=== PATIENT | male | born 1970 | race Hispanic/Latino ===

== ENCOUNTER 2017-07-03 20:26 | Emergency (ER) | payer BC, OTHER ==
[2017-07-03 21:02] LABS: BASOPHILS % (AUTO) 0.4 % (0.0-5.0); EOSINOPHILS % (AUTO) 1.4 % (0.0-8.0); HEMATOCRIT 43.1 % (42-54); LYMPHOCYTES % (AUTO) 18.3 % (21.0-51.0); MEAN CORPUSCULAR HEMOGLOBIN 32.9 pg (27.0-33.0); MEAN CORPUSCULAR HGB CONC 34.2 g/dL (32.0-36.0); MEAN CORPUSCULAR VOLUME 96.3 fL (79-99); MONOCYTES % (AUTO) 7.4 % (3.0-13.0); NEUTROPHILS % (AUTO) 72.5 % (40.0-77.0); PLATELET COUNT (AUTO) 193 K/uL (130-400); RED BLOOD CELL COUNT(AUTO) 4.48 MIL/uL (4.50-6.20); WHITE BLOOD COUNT (AUTO) 13.1 K/uL (4.8-10.8)
[2017-07-03] MEDS ORDERED: ONDANSETRON HCL 4 MG/2 ML VIAL ONE (21:03)
[2017-07-03] MEDS ORDERED: FAMOTIDINE/PF 20 MG/2 ML VIAL IV ONE (21:04)
[2017-07-03] MEDS ORDERED: MORPHINE SULFATE 4 MG/1ML SYG ONE (21:04)
[2017-07-03 21:13] LABS: CREATININE 0.8 mg/dL (0.5-1.5); POTASSIUM 3.4 mmol/L (3.5-5.1)
[2017-07-03 21:14] LABS: INR 1.05 (0.85-1.15); PARTIAL THROMBOPLASTIN TIME 29.8 SEC (26.3-35.5)
[2017-07-03 21:18] LABS: ALBUMIN 3.2 g/dL (3.5-5.0); BILIRUBIN,TOTAL 0.6 mg/dL (0.2-1.0); TOTAL PROTEIN, SERUM 7.6 g/dL (6.0-8.3)
[2017-07-03] MEDS ORDERED: LIDOCAINE HCL 2% VISCOUS 15 ML UDCUP ONE (21:42)
[2017-07-03] MEDS ORDERED: MAG HYDROX/AL HYDROX/SIMETH ES 30 ML SUSP UDCUP ONE (21:42)
[2017-07-03 22:01] LABS: APPEARANCE,URINE Clear (CLEAR); BILIRUBIN,URINE Small (NEGATIVE); COLOR,URINE Dark Yellow (YELLOW); GLUCOSE, URINE (UA) Negative (NEGATIVE); KETONES,URINE Trace mg/dL (NEGATIVE); LEUKOCYTE ESTERASE ,URINE Negative (NEGATIVE); NITRATE,URINE Negative (NEGATIVE); OCCULT BLOOD,URINE Negative (NEGATIVE); PROTEIN,URINE Negative (NEGATIVE)
[2017-07-03 22:13] LABS: BACTERIA,URINE None Seen /HPF (None Seen); MUCUS,URINE Many LPF (None Seen); RBC,URINE None Seen /HPF (0-1); SQUAMOUS EPITHELIAL CELL,UR None Seen /LPF (0-2); WBC,URINE None Seen /HPF (0-1)
== END 2017-07-03 22:26 | disposition home or self-care (01) ==
LOC: EDH 20:26
DX: K80.20 Calculus of gallbladder without cholecystitis without obstruction (principal); I10 Essential (primary) hypertension; L40.9 Psoriasis, unspecified
CPT/HCPCS: 36415; 76705; 80053; 81001; 83690; 84484; 85025; 85610; 85730; 93005; 96361; 96374; 96375; 99285; J2270; J2405; J3490

== ENCOUNTER 2018-06-01 12:50 | Day surgery (SDC) | payer BC ==
[~2018-06-01] VITALS: Ht 175.3 cm; Wt 101.3 kg
[2018-06-01] VITALS (8 sets, daily range): BP systolic 109–132; BP diastolic 72–89
[~2018-06-01 12:50] MED LIST: ADAL40KI SQ; BUSP10TA3 PO; METO-408 PO; MILK1CAP3 PO; RIFA550T PO
[2018-06-01] MEDS ORDERED: SODIUM CHLORIDE 0.9% 1000ML 1,000 ML IV ONE (13:33)
[2018-06-01 13:48] LABS: BASOPHILS % (AUTO) 0.5 % (0.0-5.0); EOSINOPHILS % (AUTO) 1.8 % (0.0-8.0); HEMATOCRIT 43.1 % (42-54); LYMPHOCYTES % (AUTO) 28.2 % (21.0-51.0); MEAN CORPUSCULAR HEMOGLOBIN 31.2 pg (27.0-33.0); MEAN CORPUSCULAR HGB CONC 33.5 g/dL (32.0-36.0); MEAN CORPUSCULAR VOLUME 93.1 fL (79-99); MONOCYTES % (AUTO) 7.6 % (3.0-13.0); NEUTROPHILS % (AUTO) 61.9 % (40.0-77.0); NUCLEATED RED BLOOD CELLS 0.1 % (0.0-0.19); PLATELET COUNT (AUTO) 253 K/uL (130-400); RED BLOOD CELL COUNT(AUTO) 4.63 MIL/uL (4.50-6.20); RED CELL DISTRIBUTION WIDTH 12.9 % (11.0-15.5); WHITE BLOOD COUNT (AUTO) 9.1 K/uL (4.8-10.8)
[2018-06-01 14:08] LABS: INR 1.09 (0.85-1.15); PROTHROMBIN TIME 11.4 SEC (9.6-11.6)
[2018-06-01 14:10] LABS: CREATININE 0.7 mg/dL (0.5-1.5); POTASSIUM 3.8 mmol/L (3.5-5.1)
[2018-06-01] MEDS ORDERED: FENTANYL CITRATE PF 50 MCG/1 ML 2ML VIAL ONE (14:16)
[2018-06-01] MEDS ORDERED: PROPOFOL 10 MG/ML 20ML VIAL IV ONE ×2 (14:16)
[2018-06-01 14:18] LABS: ALBUMIN 3.2 g/dL (3.5-5.0); BILIRUBIN,TOTAL 0.4 mg/dL (0.2-1.0); TOTAL PROTEIN, SERUM 7.8 g/dL (6.0-8.3)
--- NOTE | 2018-06-01 15:45 | NUR ---
DISCHARGE ORAL AND WRITTEN DISCHARGE INSTRUCTIONS GIVEN TO PT AND PTS . BOTH VERBALIZED UNDERSTANDING.
== END 2018-06-01 15:55 | disposition home or self-care (01) ==
LOC: ENDO 12:50
PROVIDERS: ATTEND Internal Medicine Gastroenterology
DX: I85.00 Esophageal varices without bleeding (principal); K29.00 Acute gastritis without bleeding; K76.6 Portal hypertension; K31.89 Other diseases of stomach and duodenum; Z68.41 Body mass index [BMI] 40.0-44.9, adult; K74.60 Unspecified cirrhosis of liver; Z79.899 Other long term (current) drug therapy; Z98.890 Other specified postprocedural states
CPT/HCPCS: 36415; 43235; 80053; 82105; 82140; 85025; 85610; 86677; A4606; J2704 ×2; J3010; J7030

== ENCOUNTER → 2020-02-06 | Outpatient (CLI) | payer BC ==
[2020-02-06 09:46] LABS: BASOPHILS % (AUTO) 0.7 % (0.0-5.0); MEAN CORPUSCULAR HEMOGLOBIN 31.7 pg (27.0-33.0); MEAN CORPUSCULAR HGB CONC 34.1 g/dL (32.0-36.0); MEAN CORPUSCULAR VOLUME 92.7 fL (79-99); MONOCYTES % (AUTO) 12.7 % (3.0-13.0); NEUTROPHILS % (AUTO) 47.7 % (40.0-77.0); PLATELET COUNT (AUTO) 147 K/uL (130-400); RED BLOOD CELL COUNT(AUTO) 4.96 MIL/uL (4.50-6.20); RED CELL DISTRIBUTION WIDTH 13.4 % (11.0-15.5); WHITE BLOOD COUNT (AUTO) 5.6 K/uL (4.8-10.8)
[2020-02-06 10:02] LABS: ALBUMIN 3.8 g/dL (3.5-5.0); BILIRUBIN,TOTAL 0.5 mg/dL (0.2-1.0); CREATININE 0.9 mg/dL (0.5-1.5); POTASSIUM 4.1 mmol/L (3.5-5.1); TOTAL PROTEIN, SERUM 7.9 g/dL (6.0-8.3)
[2020-02-06 10:04] LABS: INR 1.01 (0.85-1.15); PARTIAL THROMBOPLASTIN TIME 29.5 SEC (26.3-35.5); PROTHROMBIN TIME 10.9 SEC (9.6-11.6)
== END | disposition home or self-care (01) ==
LOC: RAH 08:59
PROVIDERS: ATTEND Internal Medicine Gastroenterology
DX: K74.60 Unspecified cirrhosis of liver (principal); I85.10 Secondary esophageal varices without bleeding; K76.6 Portal hypertension
CPT/HCPCS: 36415; 76700; 80053; 82105; 82140; 85025; 85610; 85730; 93975

== ENCOUNTER 2020-02-14 10:03 | Day surgery (SDC) | payer BC ==
[~2020-02-14] VITALS: Ht 175.3 cm; Wt 104.8 kg
[2020-02-14] VITALS (10 sets, daily range): BP systolic 102–134; BP diastolic 68–86
[2020-02-14] MEDS ORDERED: SODIUM CHLORIDE 0.9% 1000ML 1,000 ML IV ONE (10:08)
[2020-02-14] MEDS ORDERED: TRAZ-185 PO (11:47)
[2020-02-14] MEDS ORDERED: PROPOFOL 10 MG/ML 20ML VIAL IV ONE (12:22)
[2020-02-14] MEDS ORDERED: LIDOCAINE HCL 1% 20 ML VIAL ONE (12:22)
== END 2020-02-14 14:40 | disposition home or self-care (01) ==
LOC: ENDO 10:03
PROVIDERS: ATTEND Internal Medicine Gastroenterology
DX: K74.60 Unspecified cirrhosis of liver (principal); K21.0 Gastro-esophageal reflux disease with esophagitis; I85.10 Secondary esophageal varices without bleeding; K44.9 Diaphragmatic hernia without obstruction or gangrene; K31.89 Other diseases of stomach and duodenum; K76.6 Portal hypertension; Z79.899 Other long term (current) drug therapy
CPT/HCPCS: 43235; A4215; A4221; A4222; A4223; A4606; A4620; A4657; A4663; J2704; J7030

== ENCOUNTER 2022-12-22 10:26 | Day surgery (SDC) | payer BC ==
[2022-12-21 11:07] LABS: SARS-CoV-2, RNA, NAAT NEGATIVE SARS CoV-2 (NEGATIVE)
[2022-12-22] VITALS (8 sets, daily range): BP systolic 100–112; BP diastolic 64–71; PULSE 64–88; RESP 14–17
[~2022-12-22 10:26] MED LIST changes: +0.9%NACL 1000ML 1,000 ML IV ONE; -MILK1CAP3 PO; +TRAZ-185 PO
[2022-12-22] MEDS ORDERED: PROP10TA10 PO (10:58)
[2022-12-22] MEDS ORDERED: PROPOFOL 10 MG/ML 20ML VIAL IV ONE ×2 (11:21→13:20)
[2022-12-22] MEDS ORDERED: LIDOCAINE PF 100MG/5ML (2%) SYRINGE 5ML ONE (11:22)
[2022-12-22] MEDS ORDERED: GLYCOPYRROLATE 1 MG/5 ML SYRINGE ONE (12:50)
[2022-12-22] MEDS ORDERED: SIMETHICONE 40 MG/0.6 ML ML ONE (13:15)
== END 2022-12-22 15:00 | disposition home or self-care (01) ==
LOC: ENDO 10:26 → DAH 10:26 → ENDO 15:00
PROVIDERS: ATTEND Internal Medicine Gastroenterology
DX: Z12.11 Encounter for screening for malignant neoplasm of colon (principal); Z20.822 Contact with and (suspected) exposure to COVID-19; R14.0 Abdominal distension (gaseous); K64.1 Second degree hemorrhoids; R19.7 Diarrhea, unspecified; I85.10 Secondary esophageal varices without bleeding; K74.69 Other cirrhosis of liver; K76.6 Portal hypertension; K21.00 Gastro-esophageal reflux disease with esophagitis, without bleeding; K44.9 Diaphragmatic hernia without obstruction or gangrene; K31.89 Other diseases of stomach and duodenum; I10 Essential (primary) hypertension; D69.59 Other secondary thrombocytopenia; Z90.49 Acquired absence of other specified parts of digestive tract; Z82.49 Family history of ischemic heart disease and other diseases of the circulatory system; Z83.3 Family history of diabetes mellitus; Z80.3 Family history of malignant neoplasm of breast; Z72.89 Other problems related to lifestyle; Z87.19 Personal history of other diseases of the digestive system; Z79.899 Other long term (current) drug therapy; Z98.890 Other specified postprocedural states
CPT/HCPCS: 87635; 45378; 43239; C9803; J3490; J7030; J2001; J2704 ×2; A4620; A4215 ×2; A4223; A4222; A4221; A4663; A4606

== ENCOUNTER 2024-11-28 08:53 | Day surgery (SDC) | payer BC ==
[2024-11-27 13:46] LABS: IMMATURE GRANULOCYTE ABSOLUTE 0.01 K/uL (0-1); NUCLEATED RED BLOOD CELLS 0.0 % (0.0-0.19); PLATELET COUNT (AUTO) 38 K/uL (130-400); RED BLOOD CELL COUNT(AUTO) 3.71 MIL/uL (4.50-6.20); RED CELL DISTRIBUTION WIDTH 16.1 % (11.0-15.5); WHITE BLOOD COUNT (AUTO) 3.4 K/uL (4.8-10.8)
[2024-11-27 13:54] LABS: INR 1.47 (0.85-1.15)
[2024-11-27 14:03] LABS: ASPARTATE AMINOTRANSFERASE 108.0 U/L (10-37); CREATININE 0.6 mg/dL (0.5-1.3); GLOMERULAR FILTR. RATE CALC 116.0 mL/min (>90); GLUCOSE,RANDOM 92.0 mg/dL (70-105); SODIUM SERUM 143.0 mmol/L (136-145); TOTAL PROTEIN, SERUM 7.7 g/dL (6.0-8.3); UREA NITROGEN, BLOOD 6.0 mg/dL (7-18)
[2024-11-27 14:42] LABS: PLATELET MORPHOLOGY COMMENT MARKED DECREASE
[~2024-11-28] VITALS: Ht 175.3 cm; Wt 95.3 kg
[2024-11-28] VITALS (10 sets, daily range): BP systolic 109–124; BP diastolic 63–83; PULSE 79–90; RESP 14–18; TEMP 97.5–97.8
[2024-11-28] MEDS: 0.9%NACL 1000ML 1,000 ML IV ONE (06:30)
[~2024-11-28 08:53] MED LIST changes: -0.9%NACL 1000ML 1,000 ML IV ONE; -ADAL40KI SQ; -BUSP10TA3 PO; -METO-408 PO; +PROP10TA10 PO; -RIFA550T PO
[2024-11-28 09:13] LABS: INR 1.43 (0.85-1.15)
[2024-11-28 09:26] LABS: IMMATURE GRANULOCYTE ABSOLUTE 0.01 K/uL (0-1); NUCLEATED RED BLOOD CELLS 0.0 % (0.0-0.19); PLATELET COUNT (AUTO) 40 K/uL (130-400); RED BLOOD CELL COUNT(AUTO) 3.82 MIL/uL (4.50-6.20); RED CELL DISTRIBUTION WIDTH 16.4 % (11.0-15.5); WHITE BLOOD COUNT (AUTO) 3.1 K/uL (4.8-10.8)
[2024-11-28 09:34] LABS: ASPARTATE AMINOTRANSFERASE 120.0 U/L (10-37); CREATININE 0.7 mg/dL (0.5-1.3); GLOMERULAR FILTR. RATE CALC 111.0 mL/min (>90); GLUCOSE,RANDOM 93.0 mg/dL (70-105); SODIUM SERUM 149.0 mmol/L (136-145); TOTAL PROTEIN, SERUM 8.0 g/dL (6.0-8.3); UREA NITROGEN, BLOOD 5.0 mg/dL (7-18)
--- NOTE | 2024-11-28 11:40 | NUR ---
BLOOD TRANSFUSION STARTED VSS NAD CONSENT FOR BLOOD TRANSFUSION DONE AT BEDSIDE PRIOR TO ADMINISTRATION
[2024-11-28] MEDS ORDERED: VITAMIN B12 PO (12:27)
[2024-11-28] MEDS ORDERED: MILK500C PO (12:27)
[2024-11-28] MEDS ORDERED: GABA-529 PO (12:27)
[2024-11-28] MEDS ORDERED: LACT-441 PO (12:27)
[2024-11-28] MEDS ORDERED: ARIP10TA8 PO (12:27)
[2024-11-28] MEDS ORDERED: FOLI0.8C PO (12:27)
[2024-11-28] MEDS ORDERED: ADAL40PE SQ (12:27)
[2024-11-28] MEDS ORDERED: ONDA-105 PO (12:27)
[2024-11-28] MEDS ORDERED: RIFA550T PO (12:27)
[2024-11-28] MEDS ORDERED: ZINC SULFATE PO (12:27)
[2024-11-28] MEDS ORDERED: QUET200T PO (12:27)
[2024-11-28] MEDS ORDERED: SERT-439 PO (12:27)
[2024-11-28] MEDS ORDERED: MULT-1192 PO (12:27)
[2024-11-28] MEDS ORDERED: LUMA42CA PO (12:27)
[2024-11-28] MEDS ORDERED: LEVE250T2 PO (12:27)
[2024-11-28] MEDS ORDERED: LIDOCAINE PF 100MG/5ML (2%) SYRINGE 5ML ONE (13:00)
[2024-11-28] MEDS ORDERED: MIDAZOLAM HCL 1 MG/ML 2ML VIAL ONE (13:08)
[2024-11-28] MEDS ORDERED: GLYCOPYRROLATE 0.2 MG/ML 5 ML VIAL ONE (13:09)
== END 2024-11-28 14:49 | disposition home or self-care (01) ==
LOC: DAH 08:53 → ENDO 08:53
PROVIDERS: ATTEND Internal Medicine Gastroenterology
DX: K74.60 Unspecified cirrhosis of liver (principal); K76.6 Portal hypertension; D50.9 Iron deficiency anemia, unspecified; I85.10 Secondary esophageal varices without bleeding; K29.00 Acute gastritis without bleeding; K31.89 Other diseases of stomach and duodenum; D69.59 Other secondary thrombocytopenia; I10 Essential (primary) hypertension; Z79.899 Other long term (current) drug therapy; Z90.49 Acquired absence of other specified parts of digestive tract; Z98.890 Other specified postprocedural states; Z83.3 Family history of diabetes mellitus; Z82.49 Family history of ischemic heart disease and other diseases of the circulatory system; Z88.8 Allergy status to other drugs, medicaments and biological substances
CPT/HCPCS: 80053 ×2; 85025 ×2; 85610 ×2; 36415 ×2; 43244; 36430; 86850; 86900; 86901; P9034; J7030 ×2; J2003; J2250; J2704; J3490 ×2; A4620; A4215; A4223; A7002; A4222; A4221; A4663; A4606